=== PATIENT | male | born 1995 | race Caucasian/White ===

== ENCOUNTER → 2018-08-14 | Outpatient (CLI) | payer OTHER ==
--- NOTE | 2018-08-14 19:51 | REP ---
CT left knee without contrast: History: Status post failed left knee revision ACL reconstruction. CT findings: There is a metallic fixation device at the lateral aspect of the distal femoral condyle associated with the femoral tunnel. There is expected sclerosis around the femoral and tibial tunnels. A radiolucent fixation device is seen in the tibial tunnel. Adjacent to the fixation device is another radiolucent tibial tunnel tract with sclerotic margins. 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 There is nonarticular spurring on the superior pole patella at the quadriceps tendon insertion. This is mild. No bony destructive lesion is seen. Minimal joint fluid is seen. Study is otherwise unremarkable. Impression: Status post ACL reconstruction. Tibial femoral spurring and sclerosis particularly in the lateral compartment. Electronically Signed by Estrada Jarquin MD 08/14/2018 09:04 P
== END ==
LOC: M RAD 09:03
PROVIDERS: ATTEND Orthopaedic Surgery
DX: Z47.1 Aftercare following joint replacement surgery (principal); M25.762 Osteophyte, left knee; M17.9 Osteoarthritis of knee, unspecified

== ENCOUNTER 2018-11-06 10:39 | Emergency (ER) | payer OTHER ==
[~2018-11-06] VITALS: Ht 167.6 cm; Wt 90.0 kg
[2018-11-06 10:39] VITALS: BP 128/85
[2018-11-06] MEDS ORDERED: DOXY100C37 PO (12:24)
== END 2018-11-06 12:30 | disposition home or self-care (01) ==
LOC: M ED 12:15
DX: L05.91 Pilonidal cyst without abscess (principal); F17.290 Nicotine dependence, other tobacco product, uncomplicated

== ENCOUNTER 2019-01-10 14:08 | Emergency (ER) | payer OTHER ==
[~2019-01-10] VITALS: Ht 167.6 cm; Wt 76.7 kg
[~2019-01-10 14:08] MED LIST: DOXY100C37 PO
[2019-01-10] MEDS ORDERED: NS 1,000 ML IV ONE (14:45)
[2019-01-10] MEDS ORDERED: HumuLIN R (REGULAR) INSULIN (NovoLIN R) **100U/ML** PER UNIT IV ONE (14:45)
[2019-01-10 15:06] LABS: VENOUS HCO3 26.9 MEQ/L (23.0-27.0); VENOUS O2 SATURATION 82.4 % (60.0-80.0); VENOUS PARTIAL PRESSURE O2 47.1 mmHg (30.0-50.0); VENOUS PH 7.375 UNITS (7.330-7.430); VENOUS STANDARD HCO3 24.9 MEQ/L; VENOUS TOTAL CO2 28.3 MEQ/L (24.0-28.0)
[2019-01-10 15:16] LABS: BASO % 0.3 % (0.0-1.0); EOS % 0.4 % (0.0-3.0); HEMATOCRIT 45.6 % (42.0-52.0); HEMOGLOBIN 16.3 g/dl (13.5-17.5); LYMPH # 2.3 10^3/uL (1.5-6.5); LYMPH % 31.8 % (24.0-44.0); MEAN CORPUSCULAR HEMOGLOBIN 30.8 pg (27.0-33.0); MEAN CORPUSCULAR HGB CONC 35.7 g/dl (32.0-36.5); MEAN CORPUSCULAR VOLUME 86.2 fl (80.0-96.0); MONO # 0.4 10^3/uL (0.0-0.8); MONO % 5.8 % (0.0-5.0); NEUTROPHILS # 4.5 10^3/uL (1.8-7.7); NEUTROPHILS % 61.4 % (36.0-66.0); PLATELET COUNT, AUTOMATED 243 10^3/uL (150-450); RED BLOOD COUNT 5.29 10^6/uL (4.30-6.10); WHITE BLOOD COUNT 7.2 10^3/uL (4.0-10.0)
[2019-01-10 15:37] LABS: HEMOGLOBIN A1c 13.3 %
[2019-01-10 15:41] LABS: AMPHETAMINES LEVEL URINE NEGATIVE (NEGATIVE); BARBITURATES URINE NEGATIVE (NEGATIVE); BENZODIAZEPINES URINE NEGATIVE (NEGATIVE); CANNABINOIDS URINE NEGATIVE (NEGATIVE); COCAINE METABOLITE URINE NEGATIVE (NEGATIVE); METHADONE URINE NEGATIVE (NEGATIVE); OPIATES URINE NEGATIVE (NEGATIVE); PHENCYCLIDINE URINE NEGATIVE (NEGATIVE)
[2019-01-10 15:50] LABS: ACETONE/KETONE 3.07 MG/DL (<2.81); ALBUMIN 4.1 GM/DL (3.2-5.2); ALT/SGPT 19 U/L (12-78); BILIRUBIN,DIRECT 0.2 MG/DL (0.0-0.2); BILIRUBIN,TOTAL 0.6 MG/DL (0.2-1.0); BLOOD UREA NITROGEN 11 MG/DL (7-18); CALCIUM LEVEL 9.6 MG/DL (8.5-10.1); CARBON DIOXIDE LEVEL 29 MEQ/L (21-32); CHLORIDE LEVEL 99 MEQ/L (98-107); CREATININE FOR GFR 1.04 MG/DL (0.70-1.30); ETHYL ALCOHOL (ETHANOL) < 0.003 % (0.000-0.010); GLOMERULAR FILTRATION RATE > 60.0 (>60); GLUCOSE, FASTING 360 MG/DL (70-100); LIPASE 136 U/L (73-393); MAGNESIUM LEVEL 2.1 MG/DL (1.8-2.4); POTASSIUM SERUM 4.4 MEQ/L (3.5-5.1); SODIUM LEVEL 135 MEQ/L (136-145); TOTAL PROTEIN 7.7 GM/DL (6.4-8.2)
[2019-01-10] MEDS ORDERED: METF500T13 PO (16:45)
[2019-01-10 16:58] VITALS: BP 116/58
[2019-01-10 17:01] LABS: VENOUS BASE EXCESS -0.3 (-2.0-2.0); VENOUS HCO3 27.5 MEQ/L (23.0-27.0); VENOUS O2 SATURATION 51.7 % (60.0-80.0); VENOUS PARTIAL PRESSURE CO2 56.5 mmHg (38.0-50.0); VENOUS PARTIAL PRESSURE O2 28.6 mmHg (30.0-50.0); VENOUS PH 7.305 UNITS (7.330-7.430); VENOUS TOTAL CO2 29.2 MEQ/L (24.0-28.0)
== END 2019-01-10 17:03 | disposition home or self-care (01) ==
LOC: M ED 14:08
DX: E11.9 Type 2 diabetes mellitus without complications (principal)
CPT/HCPCS: 36415; 80048; 80076; 80307; 82010; 82803; 83036; 83690; 83735; 85025; 96374; 99284; G0480